=== PATIENT | male | born 1940 | race Caucasian/White ===

== ENCOUNTER 2016-11-13 10:48 | Emergency (ER) | payer SELFPAY ==
[~2016-11-13] VITALS: Ht 170.2 cm; Wt 97.5 kg
[2016-11-13 10:50] VITALS: BP 126/83
[2016-11-13] MEDS ORDERED: PRED20TA PO (11:13)
--- NOTE | 2016-11-13 11:13 | PHYS DOC ---
Past History Past Medical History: Diabetes, GERD, Hypertension, Other Past Medical History Gout Past Surgical History: No Surgical History Alcohol Use: None Drug Use: None Adult General Chief Complaint Chief Complaint: FOOT INJURY PAIN [facility] HPI Patient is a 75 year old male who presents with pain in the left foot onset this morning when he awoke denies trauma does not radiate up the leg pain is consistent with prior gout that she usually effected the right foot. Patient denies any neuropathy or diabetes. Foot is not been swollen no fever no redness. No other joint pains. Review of Systems Review of Systems Constitutional: Denies fever or chills [] Eyes: Denies change in visual acuity, redness, or eye pain [] HENT: Denies nasal congestion or sore throat [] Respiratory: Denies cough or shortness of breath [] Cardiovascular: No additional information not addressed in HPI [] GI: Denies abdominal pain, nausea, vomiting, bloody stools or diarrhea [] : Denies dysuria or hematuria [] Musculoskeletal: Denies back pain [] Integument: Denies rash or skin lesions [] Neurologic: Denies headache, focal weakness or sensory changes [] Endocrine: Denies polyuria or polydipsia [] Allergies Allergies Allergies Coded Allergies Type Severity Reaction Last Updated Verified midazolam Allergy Intermediate 11/13/16 Yes Physical Exam Physical Exam Constitutional: Well developed, well nourished, no acute distress, non-toxic appearance. [] HENT: Normocephalic, atraumatic, bilateral external ears normal, oropharynx moist, no oral exudates, nose normal. [] Eyes: PERRLA, EOMI, conjunctiva normal, no discharge. [] Neck: Normal range of motion, no tenderness, supple, no stridor. [] Cardiovascular:Heart rate regular rhythm, no murmur [] Lungs & Thorax: Bilateral breath sounds clear to auscultation [] Abdomen: Bowel sounds normal, soft, no tenderness, no masses, no pulsatile masses. [] Skin: Warm, dry, no erythema, no rash. [] Back: No tenderness, no CVA tenderness. [] Extremities: No tenderness except for left foot, no cyanosis, no clubbing, ROM intact, no edema. Left foot exam: Tenderness to palpation and dorsum of the left midfoot no erythema warmth or swelling 2+ pulses in the dorsal pedal and posterior tibial artery. No pain with range of motion of the ankle knee great toe hip. [] Neurologic: Alert and oriented X 3, normal motor function, normal sensory function, no focal deficits noted. [] Psychologic: Affect normal, judgement normal, mood normal. [] Current Patient Data Vital Signs Vital Signs Date Time Temp Pulse Resp B/P (MAP) Pulse Ox O2 Delivery O2 Flow Rate FiO2 11/13/16 10:50 98.7 81 18 95 Room Air EKG EKG [] Radiology/Procedures Radiology/Procedures Left foot [] Course & Med Decision Making Course & Med Decision Making Pertinent Labs and Imaging studies reviewed. (See chart for details) Patient is neurovascularly intact in the left foot no evidence of cellulitis tender to the dorsum of the foot consistent with previous history of gout. X- ray of the left foot negative for fracture dislocation. Given prednisone and will place on an additional 4 days. We'll add a postop shoe [] Dragon Disclaimer Dragon Disclaimer This chart was dictated in whole or in part using Voice Recognition software in a busy, high-work load, and often noisy Emergency Department environment. It may contain unintended and wholly unrecognized errors or omissions. Departure Departure: Impression: Primary Impression: Gout of left foot Disposition: 01 HOME, SELF-CARE Condition: STABLE Scripts Prednisone (PREDNISONE) 20 Mg Tablet 40 MG PO DAILY for 4 Days, #8 TAB 0 Refills Prov: YANDEL GUZMÁN MD 11/13/16 YANDEL GUZMÁN MD Nov 13, 2016 11:13
[2016-11-13] MEDS ORDERED: predniSONE 20 MG TABLET PO ONE (11:30)
--- NOTE | 2016-11-13 11:44 | RAD ---
Left foot, 3 views, 11/13/2016: History: Gout There are mild degenerative change at the first MTP joint. There are mild degenerative changes at scattered interphalangeal joints. No bony erosions are seen. No fracture or dislocation is evident. There is a moderate size inferior calcaneal spur. Diffuse subcutaneous edema is present. Arterial calcifications are noted. IMPRESSION: 1. Mild degenerative changes. 2. No acute bony abnormality is detected.
== END 2016-11-14 11:51 | disposition home or self-care (01) ==
LOC: ER 10:48
DX: M10.9 Gout, unspecified (principal); M79.672 Pain in left foot; E11.9 Type 2 diabetes mellitus without complications; K21.9 Gastro-esophageal reflux disease without esophagitis; I10 Essential (primary) hypertension; Z88.8 Allergy status to other drugs, medicaments and biological substances
CPT/HCPCS: 73630; 99284; J7512

== ENCOUNTER → 2019-10-13 | Outpatient (CLI) | payer MEDICARE ==
[~2019-10-13] MED LIST: PRED20TA PO
[2019-10-13 15:52] LABS: BASO % 1 % (0-3); EOS # 0.2 x10^3/uL (0.0-0.7); EOS % 5 % (0-3); HEMATOCRIT 45.5 % (39.0-53.0); HEMOGLOBIN 14.7 g/dL (13.0-17.5); LYMPH % 22 % (24-48); MEAN CORPUSCULAR HEMOGLOBIN 29 pg (25-35); MEAN CORPUSCULAR HGB CONC 32 g/dL (31-37); MEAN CORPUSCULAR VOLUME 90 fL (79-100); MONO # 0.6 x10^3/uL (0.0-1.1); MONO % 13 % (0-9); NEUT # 2.8 x10^3uL (1.8-7.7); NEUT % 61 % (31-73); PLATELET COUNT 88 x10^3/uL (140-400); RED BLOOD COUNT 5.04 x10^6/uL (4.30-5.70); RED CELL DISTRIBUTION WIDTH 20.8 % (11.5-14.5); WHITE BLOOD COUNT 4.7 x10^3/uL (4.0-11.0)
[2019-10-13 15:56] LABS: CALCIUM 9.2 mg/dL (8.5-10.1); CREATININE 0.9 mg/dL (0.7-1.3); GFR 81.6; POTASSIUM 4.8 mmol/L (3.5-5.1)
[2019-10-13 16:17] LABS: PLT ESTIMATE DECREASED (ADEQUATE)
[2019-10-13 16:24] LABS: ANISOCYTOSIS SLIGHT
== END | disposition home or self-care (01) ==
LOC: LAB 14:58
PROVIDERS: ATTEND Internal Medicine Cardiovascular Disease
DX: I48.21 Permanent atrial fibrillation (principal); I10 Essential (primary) hypertension
CPT/HCPCS: 36415; 80048; 82728; 83540; 83550; 85025

== ENCOUNTER → 2020-06-07 | Outpatient (CLI) | payer MEDICARE ==
[2020-06-07 10:36] LABS: BASO % 1 % (0-3); EOS # 0.2 x10^3/uL (0.0-0.7); EOS % 4 % (0-3); HEMATOCRIT 43.2 % (39.0-53.0); HEMOGLOBIN 14.2 g/dL (13.0-17.5); LYMPH # 1.1 x10^3/uL (1.0-4.8); LYMPH % 25 % (24-48); MEAN CORPUSCULAR HEMOGLOBIN 30 pg (25-35); MEAN CORPUSCULAR HGB CONC 33 g/dL (31-37); MEAN CORPUSCULAR VOLUME 92 fL (79-100); MONO # 0.6 x10^3/uL (0.0-1.1); MONO % 14 % (0-9); NEUT # 2.5 x10^3uL (1.8-7.7); NEUT % 56 % (31-73); PLATELET COUNT 83 x10^3/uL (140-400); RED BLOOD COUNT 4.69 x10^6/uL (4.30-5.70); WHITE BLOOD COUNT 4.4 x10^3/uL (4.0-11.0)
== END ==
LOC: LAB 09:42
PROVIDERS: ATTEND Internal Medicine Cardiovascular Disease
DX: K70.30 Alcoholic cirrhosis of liver without ascites (principal); E78.2 Mixed hyperlipidemia; I48.21 Permanent atrial fibrillation; I10 Essential (primary) hypertension
CPT/HCPCS: 36415; 85025